=== PATIENT | female | born 1985 | race Two or more races ===

== ENCOUNTER 2018-05-22 23:48 | Emergency (ER) | payer BC ==
[~2018-05-22] VITALS: Ht 172.7 cm; Wt 114.3 kg
[2018-05-22 23:59] VITALS: BP 152/85
[2018-05-23] MEDS ORDERED: NAPR-514 PO (00:33)
[2018-05-23] MEDS ORDERED: ORPH100T PO (00:33)
--- NOTE | 2018-05-23 00:33 | PHYS DOC ---
Adult General Chief Complaint Chief Complaint: LOWER BACK PAIN OR INJURY HPI HPI Patient is a 32 year old female who presents to the emergency department with complaints of low back pain that radiates into her right hip. Patient states that the pain began when she was buckling her child and his seat. She denies any fall, injury, saddle anesthesia, or loss of bowel or bladder control. She states that the pain increases when she lifts her right leg. (MAXWELL FRANKLIN APRN) Review of Systems Review of Systems Constitutional: Denies fever or chills [] GI: Denies abdominal pain : Denies dysuria, increased frequency, or hematuria [] Musculoskeletal: See history of present illness Integument: Denies rash or skin lesions [] Neurologic: Denies headache, focal weakness or sensory changes [] (MAXWELL FRANKLIN APRN) Allergies Allergies Allergies Coded Allergies Type Severity Reaction Last Updated Verified No Known Drug Allergies 05/23/18 No (CARLOS JANSEN MD) Physical Exam Physical Exam Constitutional: Well developed, well nourished, no acute distress, non-toxic appearance, obese[] HENT: Normocephalic, atraumatic, bilateral external ears normal, nose normal. [] Eyes: PERRLA, no discharge. [] Neck: Normal range of motion, no stridor. [] Lungs & Thorax: Respirations even and unlabored, no retractions. Skin: Warm, dry, no erythema, no rash. [] Back: No bony tenderness, right straight leg lift positive for increased pain Extremities: No cyanosis,ROM intact, no edema. [] Neurologic: Alert and oriented X 3, normal motor function, normal sensory function, no focal deficits noted. [] Psychologic: Affect normal, judgement normal, mood normal. [] (MAXWELL FRANKLIN APRN) Current Patient Data Vital Signs Vital Signs Date Time Temp Pulse Resp B/P (MAP) Pulse Ox O2 Delivery O2 Flow Rate FiO2 05/22/18 23:59 98.9 75 16 152/85 (107) 98 Room Air 98.9 (CARLOS JANSEN MD) EKG EKG [] (MAXWELL FRANKLIN APRN) Radiology/Procedures Radiology/Procedures [] (MAXWELL FRANKLIN APRN) Course & Med Decision Making Course & Med Decision Making Pertinent Labs and Imaging studies reviewed. (See chart for details) dx: Acute low back pain with right-sided sciatica. Offered patient IM injections of Toradol and Decadron, she declined. We'll prescribe by mouth Norflex and naproxen. Activity as tolerated. Follow-up with primary care doctor if symptoms persist. Return to the ER if symptoms worsen. Patient verbalized an understanding of home care, medications, follow-up, and return to ED instructions and was in agreement with the plan of care. [] (MAXWELL FRANKLIN APRN) Course & Med Decision Making Staff Physician Addendum: I was working in the ER during the course of this patient's visit. I was available for consultation as needed, but I was not directly involved in the care of this patient. (CARLOS JANSEN MD) Dragon Disclaimer Dragon Disclaimer This electronic medical record was generated, in whole or in part, using a voice recognition dictation system. (MAXWELL FRANKLIN APRN) Departure Departure Impression: Primary Impression: Acute low back pain with right-sided sciatica Disposition: 01 HOME, SELF-CARE Condition: STABLE Patient Instructions: Sciatica, [id number] Additional Instructions: Fill the prescriptions and use them as directed. Activity as tolerated. Follow- up with primary care doctor if symptoms persist. Return to the ER if symptoms worsen. Scripts Naproxen (NAPROXEN) 500 Mg Tablet 1 TAB PO BID PRN for PAIN for 10 Days, #20 TAB 0 Refills Prov: MAXWELL FRANKLIN APRN 05/23/18 Orphenadrine Citrate (ORPHENADRINE CITRATE) 100 Mg Tablet.er 100 MG PO BID PRN for PAIN for 10 Days, #20 TAB.SR 0 Refills Prov: MAXWELL FRANKLIN APRN 05/23/18 Problem Qualifiers Primary Impression: Acute low back pain with right-sided sciatica Back pain laterality: right Qualified Codes: M54.41 - Lumbago with sciatica , right side MAXWELL FRANKLIN APRN May 23, 2018 00:33 CARLOS JANSEN MD May 23, 2018 21:45
== END 2018-05-23 00:40 | disposition home or self-care (01) ==
LOC: ER 23:48
DX: M54.41 Lumbago with sciatica, right side (principal); E66.1 Drug-induced obesity; Z68.38 Body mass index [BMI] 38.0-38.9, adult
CPT/HCPCS: 99282; 99283